=== PATIENT | male | born 1955 | race Caucasian/White ===

== ENCOUNTER 2022-06-16 12:00 | Emergency (ER) | payer OTHER ==
[~2022-06-16] VITALS: Ht 177.8 cm; Wt 108.9 kg
[2022-06-16] MEDS ORDERED: MEDROLPACK PO (14:48)
[2022-06-16] MEDS ORDERED: AMOX-CLAV 875-1 EACH PO (14:56)
== END 2022-06-16 16:05 | disposition home or self-care (01) ==
LOC: ER 12:00
DX: R21 Rash and other nonspecific skin eruption (principal); Z20.822 Contact with and (suspected) exposure to COVID-19